=== PATIENT | male | born 1950 | race Caucasian/White ===

== ENCOUNTER → 2020-12-14 | Outpatient (CLI) | payer MEDICARE ==
--- NOTE | 2020-12-14 17:06 | XR ---
EXAMINATION TYPE: XR cervical spine comp DATE OF EXAM: 12/14/2020 TECHNIQUE: Frontal, lateral, oblique, swimmers, and open mouth view of the cervical spine are obtaine d. HISTORY: pain COMPARISON: None FINDINGS: Vertebral body heights are within normal limits. Grade 1 anterolisthesis of C6 on C7 and slight retro listhesis of C5 on C6. Multilevel degenerative endplate changes and anterior spurring cervical spine. Multilevel uncovertebr al joint hypertrophy. Moderate disc height loss at C5-C6. Oblique views demonstrate moderate neuroforaminal stenosis at C5-C6 bilaterally and C4-C5 on the left . Fracture or subluxation. Odontoid is centered over the lateral masses of C2. IMPRESSION: Degenerative changes of the cervical spine without an acute fracture or subluxation.
--- NOTE | 2020-12-14 17:17 | XR ---
EXAMINATION TYPE: XR chest 2V DATE OF EXAM: 12/14/2020 COMPARISON: NONE HISTORY: Chest pain TECHNIQUE: Frontal and lateral views of the chest are obtained. FINDINGS: There is no focal air space opacity, pleural effusion, or pneumothorax seen. Lungs are hyp erinflated and there is increased reticular opacity at the left greater than right apex. The cardiac silhouette size is within normal limits. The osseous structures are intact. IMPRESSION: Emphysematous changes without an acute cardiopulmonary process.
--- NOTE | 2020-12-14 17:20 | XR ---
EXAMINATION TYPE: XR thoracic spine complete DATE OF EXAM: 12/14/2020 CLINICAL HISTORY: Fall with mid back pain. TECHNIQUE: Frontal, lateral, and swimmer's view of thoracic spine are obtained. COMPARISON: None. FINDINGS: Thoracic spine show satisfactory alignment without evidence of acute fracture or dislocatio n. Vertebral body heights and disc space heights are preserved. Mild anterior spurring and endplate sclerosis throughout the thoracic spine. Limited assessment of the cervicothoracic junction due to un derpenetration. Visualized ribs are unremarkable. IMPRESSION: Degenerative changes of the thoracic spine. No acute fracture or dislocation is seen in t he thoracic spine.
== END | disposition home or self-care (01) ==
LOC: RADXRMAIN 15:48
PROVIDERS: ATTEND Nurse Practitioner Family
DX: M47.812 Spondylosis without myelopathy or radiculopathy, cervical region (principal); J43.9 Emphysema, unspecified; M47.814 Spondylosis without myelopathy or radiculopathy, thoracic region
CPT/HCPCS: 71046; 72050; 72072

== ENCOUNTER → 2020-12-31 | Outpatient (CLI) | payer MEDICARE ==
[2020-12-31 14:57] LABS: African American GFR (CKD) >90 (>60 ml/min/1.73 sqM); Blood Urea Nitrogen 21 mg/dL (9-20); Non-African American GFR(CKD) >90 (>60 ml/min/1.73 sqM)
--- NOTE | 2020-12-31 15:59 | CT ---
EXAMINATION TYPE: CT chest w con DATE OF EXAM: 12/31/2020 COMPARISON: Chest x-ray along with cervical and thoracic spine x-rays 17 days ago HISTORY: Abnormal weight loss, back pain and hypoxia. CT DLP: 137 mGycm. Automated Exposure Control for Dose Reduction was Utilized. TECHNIQUE: CT scan of the thorax is performed following with IV Contrast, patient injected with 100m l mL of Isovue 300. FINDINGS: LUNGS: Background Moderate underlying emphysematous change is redemonstrated. Better seen on CT versu s plain films is large heterogeneous destructive lesion left lung apex medially measuring 6.4 x 6.7 c m axial image 9 x 7.0 cm coronal image 39 that is destroying majority of third and fourth thoracic ve rtebra along with left anterior T2 vertebra. Invasion into anterolateral spinal canal axial image 11 is noted. Moderate biapical pleural/parenchymal scarring MEDIASTINUM: Coronary artery calcification. Tiny pericardial effusion is seen right inferior aspect. No cardiomegaly. Suspicious prominent borderline enlarged AP window lymph nodes axial image 24. OTHER: Intraluminal 1.3 cm gallstone coronal image 39. Thin-walled cysts left kidney including exophy tic cysts. Single partially exophytic thin-walled cyst medially right kidney. Patient is little intra -abdominal fat. 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 IMPRESSION: 1. Medial left apical mass with mediastinal invasion causing osseous destruction as detailed above st rongly suspicious for neoplasm. Beginning spinal canal effacement noted. 2. 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 Correlate c linically for lower extremity peripheral vascular disease A [place] level critical message alert has been initiated for Al Alaniz DO via the [employer] Critical Results System on 12/31/2020 3:57 PM. This message alert has been sent to Al Alaniz DO via the preferences provided by the clinician for the receipt of Radiology Critical Findings. Message ID [id number].
== END | disposition home or self-care (01) ==
LOC: RADCTMAIN 14:09
PROVIDERS: ATTEND Family Medicine
DX: R91.8 Other nonspecific abnormal finding of lung field (principal)
CPT/HCPCS: 82565; 84520; 71260; 36415; Q9967

== ENCOUNTER 2021-01-22 08:45 | Day surgery (SDC) | payer MEDICARE ==
[2021-01-22] MEDS ORDERED: ALPRAZolam 0.25 MG TAB PO STA (09:15)
[2021-01-22 09:21] LABS: Mean Platelet Volume 6.8; Platelet Count 708 k/uL (150-450)
[2021-01-22 09:31] LABS: Prothrombin Time 10.5 sec (9.0-12.0)
[2021-01-22 10:51] VITALS: BP 112/63; PULSE 74; RESP 18; TEMP 97.6
--- NOTE | 2021-01-22 11:10 | XR ---
EXAMINATION TYPE: XR chest 1V portable DATE OF EXAM: 01/22/2021 COMPARISON: 12/14/2020 INDICATION: Lung biopsy TECHNIQUE: Single frontal view of the chest is obtained. FINDINGS: The heart size is normal. The pulmonary vasculature is normal. There is thickening along the superior medial left apex. Some stranding is adjacent. Some mild right apical thickening not excluded No pneumothorax is evident. IMPRESSION: 1. No pneumothorax post biopsy. 2. Thickening of the left superior medial apex with adjacent infiltrate.
--- NOTE | 2021-01-22 11:17 | CT ---
EXAMINATION TYPE: CT biopsy lung LT DATE OF EXAM: 01/22/2021 COMPARISON: 12/31/2020 HISTORY: Lung mass CT DLP: 287 mGycm The procedure is discussed with the patient, the risks, complications, benefits and alternatives, wer e discussed and any questions were answered. Informed consent was obtained. The patient is placed p rajendra on the CT table, prepped and draped in the usual sterile fashion. Utilizing a 18-gauge core biopsy needle access into the left upper lobe mass was achieved with a sing le sample. Pathology pending. All elements of maximal barrier technique were utilized. The patient remained stable throughout the procedure with no immediate postprocedural complication. IMPRESSION: 1. Successful CT guided liver biopsy left upper lobe lung mass
--- NOTE | 2021-01-22 13:23 | XR ---
EXAMINATION TYPE: XR chest 1V portable DATE OF EXAM: 01/22/2021 COMPARISON: Earlier exam 01/22/2021 INDICATION: Post lung biopsy TECHNIQUE: Single frontal view of the chest is obtained. FINDINGS: The heart size is normal. The pulmonary vasculature is normal. Thickening along the superior left mediastinal apex border is stable. Small infiltrate is present adj acent. Very minimal visualization of lety pleural is present superior laterally. No additional findin gs to suggest pneumothorax IMPRESSION: 1. Alignment partially visualized in the superior lateral left apex. No significant pneumothorax is e vident. 2. Stable appearance of left apical mass and infiltrate.
== END 2021-01-22 13:38 | disposition home or self-care (01) ==
LOC: RADPROMAIN 08:45 → 6NMEDSUR 10:34 → RADPROMAIN 13:38
PROVIDERS: ATTEND Internal Medicine Hematology & Oncology
DX: C34.12 Malignant neoplasm of upper lobe, left bronchus or lung (principal)
CPT/HCPCS: 32408; 36415; 71045; 85049; 85610; 88305; 88341; 88342